=== PATIENT | female | born 1990 | race Caucasian/White ===

== ENCOUNTER 2021-02-08 23:19 | Emergency (ER) | payer OTHER ==
[2021-02-08 23:32] VITALS: BP 133/104; PULSE 100; TEMP 98.5; BMI 18.8
[2021-02-09] MEDS ORDERED: CLINDAMYCIN HCL 150 MG CAPSULE (FP) PO ONE (00:45)
[2021-02-09] MEDS ORDERED: CLINDAMYCIN HCL 150 MG CAPSULE (FP) ONE (01:04)
== END 2021-02-09 01:11 | disposition home or self-care (01) ==
LOC: JER 23:19
DX: S01.301A Unspecified open wound of right ear, initial encounter (principal); W26.8XXA Contact with other sharp object(s), not elsewhere classified, initial encounter
CPT/HCPCS: 99283-25

== ENCOUNTER 2021-10-01 11:24 | Inpatient (IN) | payer OTHER ==
[2021-10-01 12:08] VITALS: BMI 18.8
[2021-10-01] MEDS ORDERED: IBUPROFEN 400 MG TABLET (FP) PO PRN (12:39)
[2021-10-01] MEDS ORDERED: methaDONE HCL 10 MG TABLET (FOR DETOX USE ONLY) PO ONE (12:39)
[2021-10-01] MEDS ORDERED: NALOXONE (NARCAN) HCL 4 MG/0.1 ML SPRAY NS PRN (12:39)
[2021-10-01] MEDS ORDERED: clonazePAM 0.5 MG ODT TABLETS SL PRN (12:39)
[2021-10-01] MEDS ORDERED: BISMUTH SUBSALICYLATE 524 MG/30 ML PO PRN (12:39)
[2021-10-01] MEDS ORDERED: MAG HYDROX/AL HYDROX/SIMETH 30 ML UNIT-DOSE CUP PO PRN (12:39)
[2021-10-01] MEDS ORDERED: ACETAMINOPHEN 325 MG TABLET (FP) PO PRN ×2 (12:39)
[2021-10-01] MEDS ORDERED: MENTHOL/PHENOL 1 EACH UD MM PRN (12:39)
[2021-10-01] MEDS ORDERED: MAGNESIUM HYDROX 2400MG/30ML ORAL SUSPENSION 30 ML CUP PO PRN (12:39)
[2021-10-01] MEDS ORDERED: MAGNESIUM CITRATE 300 ML BOTTLE PO PRN (12:39)
[2021-10-01] MEDS: LIDOCAINE 5% TOPICAL PATCH TP SCH (21:39)
[2021-10-01] MEDS: LIDOCAINE PATCH REMOVAL MC SCH (22:16)
[2021-10-01] MEDS: MELATONIN 5 MG TABLETS PO SCH (22:16)
[2021-10-01] MEDS: METHOCARBAMOL 500 MG TABLET PO PRN (22:16)
[2021-10-01] MEDS: THIAMINE HCL 100 MG TABLET (FP) PO SCH (22:16)
[2021-10-02] MEDS ORDERED: methaDONE HCL 10 MG TABLET (FOR DETOX USE ONLY) ONE (09:23)
[2021-10-02] MEDS: LIDOCAINE 5% TOPICAL PATCH TP SCH (10:05)
[2021-10-02] MEDS: PRENATAL VITAMINS W/ FOLIC ACID TABLET (FP) PO SCH (10:05)
[2021-10-02 10:55] LABS: MCH 23.9 pg (25.7-33.7); MCHC 32.2 g/dl (32.0-36.0); MEAN CELL VOLUME 74.3 fl (80-96); MEAN PLT VOLUME 8.6 fl (7.5-11.1); PLATELET COUNT 299 10^3/uL (134-434); RBC 3.77 M/mm3 (3.60-5.2); RDW 16.6 % (11.6-15.6); WHITE BLOOD COUNT 4.7 K/mm3 (4.0-10.0)
[2021-10-02 11:16] LABS: CALCIUM 9.1 mg/dL (8.5-10.1)
[2021-10-02 11:17] LABS: ALBUMIN 2.9 g/dl (3.4-5.0); BLOOD UREA NITROGEN 10.8 mg/dL (7-18)
[2021-10-02 11:20] LABS: CREATININE 0.6 mg/dL (0.55-1.3)
[2021-10-02 11:21] LABS: BILIRUBIN,TOTAL 0.4 mg/dL (0.2-1); TOT PROT 7.4 g/dl (6.4-8.2)
[2021-10-02] MEDS: NICOTINE 10 MG CARTRIDGE (INHALER) IH PRN ×3 (13:41→22:03)
[2021-10-02] MEDS: diazePAM 5 MG TABLET PO PRN ×2 (14:15→18:40)
[2021-10-02] MEDS: GABAPENTIN 100 MG CAPSULE PO SCH ×2 (14:16→22:02)
[2021-10-02] MEDS: METHOCARBAMOL 500 MG TABLET PO PRN ×2 (14:16→22:02)
[2021-10-02] MEDS: NICOTINE POLACRILEX 4 MG GUM BUC PRN ×2 (14:40→18:40)
[2021-10-02] MEDS: THIAMINE HCL 100 MG TABLET (FP) PO SCH (22:01)
[2021-10-02] MEDS: MELATONIN 5 MG TABLETS PO SCH (22:02)
[2021-10-02] MEDS: DIVALPROEX SODIUM 500 MG TABLET E.C. PO SCH (22:02)
[2021-10-02] MEDS: LIDOCAINE PATCH REMOVAL MC SCH (22:02)
[2021-10-02] MEDS: QUEtiapine FUMARATE 50 MG TABLET PO SCH (22:02)
[2021-10-03] MEDS: diazePAM 5 MG TABLET PO PRN ×3 (05:30→18:48)
[2021-10-03] MEDS: GABAPENTIN 100 MG CAPSULE PO SCH ×3 (05:31→22:23)
[2021-10-03] MEDS ORDERED: methaDONE HCL 10 MG TABLET (FOR DETOX USE ONLY) PO ONE (10:00)
[2021-10-03] MEDS: PRENATAL VITAMINS W/ FOLIC ACID TABLET (FP) PO SCH (10:24)
[2021-10-03] MEDS: METHOCARBAMOL 500 MG TABLET PO PRN (10:25)
[2021-10-03] MEDS: LIDOCAINE 5% TOPICAL PATCH TP SCH (10:25)
[2021-10-03] MEDS: NICOTINE 10 MG CARTRIDGE (INHALER) IH PRN ×3 (10:26→18:45)
[2021-10-03] MEDS: NICOTINE POLACRILEX 4 MG GUM BUC PRN ×2 (13:33→22:26)
[2021-10-03] MEDS: MELATONIN 5 MG TABLETS PO SCH (22:22)
[2021-10-03] MEDS: DIVALPROEX SODIUM 500 MG TABLET E.C. PO SCH (22:23)
[2021-10-03] MEDS: THIAMINE HCL 100 MG TABLET (FP) PO SCH (22:23)
[2021-10-03] MEDS: QUEtiapine FUMARATE 50 MG TABLET PO SCH (22:23)
[2021-10-03] MEDS: LIDOCAINE PATCH REMOVAL MC SCH (22:25)
[2021-10-04] MEDS: diazePAM 5 MG TABLET PO PRN ×4 (06:03→22:19)
[2021-10-04] MEDS: GABAPENTIN 100 MG CAPSULE PO SCH ×3 (06:04→22:18)
[2021-10-04] MEDS: NICOTINE 10 MG CARTRIDGE (INHALER) IH PRN ×4 (06:05→22:21)
[2021-10-04] MEDS ORDERED: methaDONE HCL 10 MG TABLET (FOR DETOX USE ONLY) ONE (09:04)
[2021-10-04] MEDS: PRENATAL VITAMINS W/ FOLIC ACID TABLET (FP) PO SCH (10:18)
[2021-10-04] MEDS: LIDOCAINE 5% TOPICAL PATCH TP SCH (10:18)
[2021-10-04] MEDS: METHOCARBAMOL 500 MG TABLET PO PRN (10:20)
[2021-10-04 10:26] LABS: IRON SERUM 32 ug/dL (50-175)
[2021-10-04 10:28] LABS: TOTAL IRON BINDING CAPACITY 311 ug/dL (250-450)
[2021-10-04] MEDS: NICOTINE POLACRILEX 4 MG GUM BUC PRN (13:08)
[2021-10-04] MEDS: FERROUS SO4 325 MG TABLET (FP) PO SCH (17:27)
[2021-10-04] MEDS: THIAMINE HCL 100 MG TABLET (FP) PO SCH (22:18)
[2021-10-04] MEDS: LIDOCAINE PATCH REMOVAL MC SCH (22:18)
[2021-10-04] MEDS: DIVALPROEX SODIUM 500 MG TABLET E.C. PO SCH (22:18)
[2021-10-04] MEDS: QUEtiapine FUMARATE 50 MG TABLET PO SCH (22:18)
[2021-10-04] MEDS: MELATONIN 5 MG TABLETS PO SCH (22:19)
[2021-10-05] MEDS: NICOTINE 10 MG CARTRIDGE (INHALER) IH PRN ×4 (05:45→22:46)
[2021-10-05] MEDS: GABAPENTIN 100 MG CAPSULE PO SCH ×3 (05:45→22:43)
[2021-10-05] MEDS: METHOCARBAMOL 500 MG TABLET PO PRN (05:47)
[2021-10-05] MEDS ORDERED: methaDONE HCL 10 MG TABLET (FOR DETOX USE ONLY) PO ONE (10:00)
[2021-10-05] MEDS: PRENATAL VITAMINS W/ FOLIC ACID TABLET (FP) PO SCH (10:03)
[2021-10-05] MEDS: FERROUS SO4 325 MG TABLET (FP) PO SCH ×3 (10:04→17:49)
[2021-10-05] MEDS: LIDOCAINE 5% TOPICAL PATCH TP SCH (10:04)
[2021-10-05] MEDS: NICOTINE POLACRILEX 4 MG GUM BUC PRN ×2 (13:20→17:49)
[2021-10-05] MEDS ORDERED: diphenhydrAMINE HCL 25 MG CAPSULE (FP) PO ONE (19:10)
[2021-10-05] MEDS ORDERED: CALAMINE 8% TOPICAL LOTION 177 ML BOTTLE TP PRN (19:10)
[2021-10-05] MEDS: THIAMINE HCL 100 MG TABLET (FP) PO SCH (22:43)
[2021-10-05] MEDS: QUEtiapine FUMARATE 50 MG TABLET PO SCH (22:43)
[2021-10-05] MEDS: DIVALPROEX SODIUM 500 MG TABLET E.C. PO SCH (22:43)
[2021-10-05] MEDS: MELATONIN 5 MG TABLETS PO SCH (23:09)
[2021-10-05] MEDS: LIDOCAINE PATCH REMOVAL MC SCH (23:09)
[2021-10-06] MEDS: GABAPENTIN 100 MG CAPSULE PO SCH (06:45)
[2021-10-06] MEDS: NICOTINE 10 MG CARTRIDGE (INHALER) IH PRN (06:46)
[2021-10-06] MEDS: FERROUS SO4 325 MG TABLET (FP) PO SCH (07:10)
[2021-10-06 07:37] VITALS: BP 97/57; PULSE 65; TEMP 97.1
== END 2021-10-06 09:33 | disposition home or self-care (01) | DRG 773 ==
LOC: YASAS 11:24 → Y6N 13:24
PROVIDERS: ADMIT Allergy & Immunology; ATTEND Allergy & Immunology
PROC: HZ2ZZZZ Detoxification Services for Substance Abuse Treatment (ICD-10-PCS; principal; 2021-10-01)
DX: F11.23 Opioid dependence with withdrawal (principal); F14.20 Cocaine dependence, uncomplicated; F17.213 Nicotine dependence, cigarettes, with withdrawal; F31.81 Bipolar II disorder; D50.9 Iron deficiency anemia, unspecified; M25.561 Pain in right knee; R21 Rash and other nonspecific skin eruption; Z56.0 Unemployment, unspecified; Z59.00 Homelessness unspecified
CPT/HCPCS: 36415; 80053; 80164; 81025; 82607; 83540; 83550; 85027; 86780; 93005; 93010; C9803; U0003; U0005